=== PATIENT | female | born 1980 | race Caucasian/White ===

== ENCOUNTER 2018-03-16 14:07 | Emergency (ER) | payer BC ==
--- OUTSIDE RECORDS SUMMARY | 2018-03-16 14:10 | XMS REPORT | Continuity of Care Document ---
:1980 Author Organization Interface Problems Problem Status Onset Classification Date Comments Source Date Reported Morbid Active Problem 10/08/2017 [facility] Medications Medication Details Route Status Patient Ordering Order Source Instructions Provider Date Allergies, Adverse Reactions, Alerts Substance Category Reaction Severity Reaction Status Date Comments Source type Reported Immunizations Immunization Date Given Site Status Last Updated Comments Source Results Order Results Value Reference Date Interpretation Comments Source Name Range Vital Signs Vital Sign Value Date Comments Source BMI Calculated 43.12 07/02/2017 [facility] Height 165.1 cm 07/02/2017 [facility] Weight 117.545 07/02/2017 [facility] Heart Rate 71 07/02/2017 [facility] Systolic (mm Hg) 131 07/02/2017 [facility] Diastolic (mm Hg) 78 07/02/2017 [facility] Temperature Oral (F) 98.6 F 07/02/2017 [facility] Encounters Location Location Encounter Encounter Reason Attending ADM DC Status Source Details Type Number For Provider Date Date Visit Outpatient [id number] ISAAC 12/11 [facility] [id number] 07/02 [facility] Out[facility] [id number] Isaac 07/02 07/03 [facility] Procedures Procedure Code Date Perfomer Comments Source section [id number] [facility] Gallbladder [id number] Medical operation Group
--- OUTSIDE RECORDS SUMMARY | 2018-03-16 14:10 | XMS REPORT | Summary of Care ---
:1980 Author Organization [facility] Address [address] [place] [address]- Encounter HQ Jeanna_cristian(FIN) [id number] Date(s): 07/02/17 - 07/02/17 [facility] [address] [place] [phone] Discharge Disposition: Home or Self Care Attending Physician: Isaac Price MD Vital Signs Most recent to oldest [Reference Range]: 1 Height 165.1 cm (07/02/17 10:11 AM) Temperature Oral [96.4-99.1 DegF] 98.6 DegF (07/02/17 10:11 AM) Blood Pressure [90-140/60-90 mmHg] 131/78 mmHg (07/02/17 10:11 AM) Peripheral Pulse Rate [60-100 bpm] 71 bpm (07/02/17 10:11 AM) Weight 117.545 kg (07/02/17 10:11 AM) Body Mass Index 43.12 m2 (07/02/17 10:11 AM) Problem List Condition Effective Dates Status Health Status Informant Morbid obesity(Confirmed) Active Allergies, Adverse Reactions, Alerts Substance Reaction Severity Status NKDA Active Medications No Known Medications Results No data available for this section Immunizations No data available for this section Procedures Procedure Date Related Diagnosis Body Site Status section Completed Gallbladder operation Completed Social History Social History Type Response Smoking Status Former smoker; Type: Cigarettes; Exposure to Tobacco Smoke None ; Cigarette Smoking Last 365 Days Yes; Reg Smoking Cessation Counseling Yes entered on: 07/02/17 Assessment and Plan No data available for this section
--- NOTE | 2018-03-16 15:44 | EKG ---
Test Date: 2018-03-16 Test Time: 14:40:57 Evaporator Supervisor: TIMMY MEASUREMENT RESULTS: Intervals: Rate: 60 AK: 144 QRSD: 84 QT: 440 QTc: 440 [place]: P: 46 AK: 144 QRS: 36 T: 19 INTERPRETIVE STATEMENTS: Normal sinus rhythm Cannot rule out Anterior infarct, age undetermined Abnormal ECG Compared to ECG 01/01/1999 03:01:00 minimal change in anterior lead R waves Sinus tachycardia no longer present Electronically Signed On 03-16-18 15:44:06 CDT by Daniel Bridges
[2018-03-16 17:09] LABS: Absolute Monocytes 0.8 K/uL (0.1-1.3); Absolute Neutrophil 8.8 K/uL (1.8-8.0); Basophils % 0.6 % (0-1.3); Eosinophils % 2.2 % (0-4.4); Hematocrit 38.3 % (36.0-45.0); Lymphocytes % 23.2 % (15.3-44.8); MCH 27.2 pg (27.0-35.0); MCV 82.8 fL (80-100); MPV 8.4 fL (7.6-11.3); Monocytes % 6.1 % (3.3-12.3); RBC Red Blood Cell Count 4.63 M/uL (3.86-4.86)
[2018-03-16 17:23] LABS: BUN Blood Urea Nitrogen 11 mg/dL (7-18); Bicarbonate 25 mmol/L (21-32); Glucose Level 103 mg/dL (74-106); NT PRO-BNP 178 pg/mL (<125); Potassium 3.7 mmol/L (3.5-5.1); Sodium Level 139 mmol/L (136-145); Troponin (Emerg Dept Use Only) < 0.02 ng/mL (0.0-0.045)
[2018-03-16 17:38] LABS: Protime INR 1.02
--- NOTE | 2018-03-16 18:04 | RAD REPORT ---
EXAM DESCRIPTION: RAD - Chest Pa And Lat (2 Views) - 03/16/2018 4:04 pm CLINICAL HISTORY: Chest pain, shortness of breath COMPARISON: None. TECHNIQUE: PA and lateral views of the chest were obtained. FINDINGS: The lungs are underinflated. No infiltrate confirmed. Pericardial fat pad on the left obs cures the left hemidiaphragm. Failure and volume overload are not suspected. Heart size is normal and central vasculature is within normal limits. No pleural effusion or pneumothorax seen. No acute fran ny finding noted. No aortic abnormality. IMPRESSION: No acute cardiopulmonary process.
--- NOTE | 2018-03-16 20:14 | ER ---
Nurse's Notes [facility] Name: Rivka Bowman Age: 37 yrs Sex: Female : 1980 Arrival Date: 03/16/2018 Time: 14:10 Bed 19 Private MD: Diagnosis: Chest pain, unspecified Presentation: 03/16 14:18 Presenting complaint: Patient states: shortness of breath that began "several days ss ago". Pt states, "it started off as anxiety, but it's getting to the point now where it just feels like somebody is sitting on my chest.". Transition of care: patient was not received from another setting of care. Onset of symptoms was March 12, 2018. Risk Assessment: Do you want to hurt yourself or someone else? Patient reports no desire to harm self or others. Initial Sepsis Screen: Does the patient meet any 2 criteria? No. Patient's initial sepsis screen is negative. Does the patient have a suspected source of infection? No. Patient's initial sepsis screen is negative. Care prior to arrival: None. 14:18 Method Of Arrival: Ambulatory ss 14:18 Acuity: WILLIE 3 ss Historical: - Allergies: 14:19 Levaquin; ss - Home Meds: 18:41 None [Active]; ch - PMHx: 18:41 None; ch - PSHx: 14:19 Cholecystectomy; ; ss - Immunization history:: Adult Immunizations up to date. - Social history:: Smoking status: Patient uses tobacco products, denies chronic smoking, but will smoke occasionally. - Ebola Screening: : Patient denies exposure to infectious person Patient denies travel to an Ebola-affected area in the 21 days before illness onset. Screenin:41 Abuse screen: Denies threats or abuse. Denies injuries from another. Nutritional ch screening: No deficits noted. Tuberculosis screening: No symptoms or risk factors identified. Fall Risk None identified. Assessment: 16:41 General: Appears in no apparent distress. comfortable, Behavior is calm, cooperative, ch appropriate for age, pt is talking on phone when I try to assess her. will try again when pt is finished with her conversation. Pain: Denies pain. Cardiovascular: Heart tones S1 S2 present Capillary refill < 3 seconds in bilateral fingers toes Clubbing of nail beds is absent Patient's skin is warm and dry. Rhythm is regular. Respiratory: Reports shortness of breath Airway is patent Respiratory effort is even, unlabored, Breath sounds are clear bilaterally. Breath sounds are coarse in left posterior lower lobe. GI: No signs and/or symptoms were reported involving the gastrointestinal system. : No signs and/or symptoms were reported regarding the genitourinary system. Derm: Skin is pink, warm \\T\\ dry. 17:31 Reassessment: Patient appears in no apparent distress at this time. No changes from previously documented assessment. Patient and/or family updated on plan of care and expected duration. Pain level reassessed. Patient is alert, oriented x 3, equal unlabored respirations, skin warm/dry/pink. PT IS STILL ON PHONE, REQUESTS I GIVE HER A FEW MORE MIN. 18:24 Reassessment: Patient appears in no apparent distress at this time. Patient and/or family updated on plan of care and expected duration. Pain level reassessed. Patient is alert, oriented x 3, equal unlabored respirations, skin warm/dry/pink. Patient states feeling better. Patient states symptoms have improved. 18:41 Reassessment: Patient appears in no apparent distress at this time. No changes from previously documented assessment. Patient and/or family updated on plan of care and expected duration. Pain level reassessed. Patient is alert, oriented x 3, equal unlabored respirations, skin warm/dry/pink. 19:30 Reassessment: Patient appears in no apparent distress at this time. Patient and/or jb4 family updated on plan of care and expected duration. Pain level reassessed. Patient is alert, oriented x 3, equal unlabored respirations, skin warm/dry/pink. Patient denies pain at this time. Patient states feeling better. Patient states symptoms have improved. Cardiovascular: Patient's skin is warm and dry. Respiratory: Airway is patent Respiratory effort is even, unlabored, Respiratory pattern is regular, symmetrical. 20:20 Reassessment: Patient appears in no apparent distress at this time. Patient and/or jb4 family updated on plan of care and expected duration. Pain level reassessed. Patient is alert, oriented x 3, equal unlabored respirations, skin warm/dry/pink. Patient denies pain at this time. Patient states feeling better. Vital Signs: 14:19 BP 108 / 75; Pulse 65; Resp 16; Temp 97.0(TE); Pulse Ox 100% on R/A; Weight 120.2 kg; ss Height 5 ft. 5 in. (165.10 cm); Pain 5/10; 16:41 BP 115 / 69; Pulse 74; Resp 18; Temp 97.9; Pulse Ox 100% on R/A; Pain 0/10; ch 17:31 BP 117 / 62; Pulse 80; Resp 15; Pulse Ox 100% on R/A; ch 18:24 BP 110 / 58; Pulse 70; Resp 15; Temp 97.9; Pulse Ox 100% on R/A; Pain 0/10; ch 20:00 BP 128 / 90; Pulse 63; Resp 18; Pulse Ox 100% ; jb4 14:19 Body Mass Index 44.10 (120.20 kg, 165.10 cm) ss ED Course: 14:10 Patient arrived in ED. as 14:19 Triage completed. ss 14:19 Arm band placed on right wrist. ss 15:01 EKG done, by body art technician. reviewed by Marco Leon MD. at1 15:56 Chest Pa And Lat (2 Views) XRAY In Process Unspecified. EDMS 16:27 Randi Torres, RN is Primary Nurse. ch 16:33 Neville Mercado MD is Attending Physician. gs 16:41 Patient has correct armband on for positive identification. Placed in gown. Bed in low ch position. Call light in reach. Side rails up X 1. Adult w/ patient. Pulse ox on. NIBP on. Warm blanket given. 16:41 No provider procedures requiring assistance completed. ch 16:54 Initial lab(s) drawn, by me, sent to lab. Inserted saline lock: 20 gauge in left dh3 antecubital area, using aseptic technique. Blood collected. 18:24 No apparent distress. Resting quietly. ch 18:41 Repeat lab(s) drawn. by me, sent to lab. ch 18:56 Report given to Hugo. ch 19:17 Primary Nurse role handed off by Randi Torres, ROSANNE jb4 19:17 Kerwin Nieves, RN is Primary Nurse. jb4 20:14 Bahman Donahue MD is Referral Physician. gs 20:20 IV discontinued, intact, bleeding controlled. jb4 Administered Medications: No medications were administered Outcome: 20:14 Discharge ordered by . gs 20:20 Discharged to home ambulatory. jb4 20:20 Condition: stable 20:20 Discharge instructions given to patient, Instructed on discharge instructions, follow up and referral plans. Demonstrated understanding of instructions, follow-up care. 20:22 Patient left the ED. jb4 Signatures: Dispatcher [employer] EDMS Randi Torres, Kaur Gauthier RN, ch, Shelby, RN RN Aubrie Locke, meter reader inspector EKG Tat1 Kerwin Nieves RN RN jbXena Blandon [facility] Neville Mercado MD MD gs Corrections: (The following items were deleted from the chart) 20:12 19:30 Pulse 63bpm; Resp 18bpm; Pulse Ox 100%; jb4 jb4 20:21 20:21 Respiratory: jb4 jb4
--- NOTE | 2018-03-16 20:15 | EDPHYS ---
Physician Documentation [facility] Name: Rivka Bowman Age: 37 yrs Sex: Female : 1980 Arrival Date: 03/16/2018 Time: 14:10 Bed 19 Private MD: ED Physician Neville Mercado HPI: 03/16 20:09 This 37 yrs old Female presents to ER via Ambulatory with complaints of gs Shortness Of Breath, Chest Pressure. 20:09 The patient or guardian reports chest pain that is located primarily in the anterior gs chest wall. The pain does not radiate. Associated signs and symptoms: Pertinent positives: shortness of breath. The chest pain is described as a heaviness. Duration: The patient or guardian reports multiple episodes, that are intermittent, that wax and wane, with no pattern. Modifying factors: The symptoms are alleviated by nothing. the symptoms are aggravated by nothing. Severity of pain: At its worst the pain was moderate in the emergency department the pain has improved markedly. The patient has experienced similar episodes in the past, a few times. Historical: - Allergies: 14:19 Levaquin; ss - Home Meds: 18:41 None [Active]; ch - PMHx: 18:41 None; ch - PSHx: 14:19 Cholecystectomy; ; ss - Immunization history:: Adult Immunizations up to date. - Social history:: Smoking status: Patient uses tobacco products, denies chronic smoking, but will smoke occasionally. - Ebola Screening: : Patient denies exposure to infectious person Patient denies travel to an Ebola-affected area in the 21 days before illness onset. ROS: 20:09 All other systems are negative. gs Exam: 20:09 Head/Face: Normocephalic, atraumatic. Eyes: Pupils equal round and reactive to light, gs extra-ocular motions intact. Lids and lashes normal. Conjunctiva and sclera are non-icteric and not injected. Cornea within normal limits. Periorbital areas with no swelling, redness, or edema. ENT: Nares patent. No nasal discharge, no septal abnormalities noted. Tympanic membranes are normal and external auditory canals are clear. Oropharynx with no redness, swelling, or masses, exudates, or evidence of obstruction, uvula midline. Mucous membranes moist. Neck: Trachea midline, no thyromegaly or masses palpated, and no cervical lymphadenopathy. Supple, full range of motion without nuchal rigidity, or vertebral point tenderness. No Meningismus. Chest/axilla: Normal chest wall appearance and motion. Nontender with no deformity. No lesions are appreciated. Cardiovascular: Regular rate and rhythm with a normal S1 and S2. No gallops, murmurs, or rubs. Normal PMI, no JVD. No pulse deficits. Respiratory: Lungs have equal breath sounds bilaterally, clear to auscultation and percussion. No rales, rhonchi or wheezes noted. No increased work of breathing, no retractions or nasal flaring. Abdomen/GI: Soft, non-tender, with normal bowel sounds. No distension or tympany. No guarding or rebound. No evidence of tenderness throughout. Back: No spinal tenderness. No costovertebral tenderness. Full range of motion. Skin: Warm, dry with normal turgor. Normal color with no rashes, no lesions, and no evidence of cellulitis. MS/ Extremity: Pulses equal, no cyanosis. Neurovascular intact. Full, normal range of motion. Neuro: Awake and alert, GCS 15, oriented to person, place, time, and situation. Cranial nerves II-XII grossly intact. Motor strength 5/5 in all extremities. Sensory grossly intact. Cerebellar exam normal. Normal gait. 20:09 Constitutional: The patient appears alert, awake. 20:09 ECG was reviewed by the Attending Physician. Vital Signs: 14:19 BP 108 / 75; Pulse 65; Resp 16; Temp 97.0(TE); Pulse Ox 100% on R/A; Weight 120.2 kg; Height 5 ft. 5 in. (165.10 cm); Pain 5/10; 16:41 BP 115 / 69; Pulse 74; Resp 18; Temp 97.9; Pulse Ox 100% on R/A; Pain 0/10; ch 17:31 BP 117 / 62; Pulse 80; Resp 15; Pulse Ox 100% on R/A; ch 18:24 BP 110 / 58; Pulse 70; Resp 15; Temp 97.9; Pulse Ox 100% on R/A; Pain 0/10; ch 20:00 BP 128 / 90; Pulse 63; Resp 18; Pulse Ox 100% ; jb4 14:19 Body Mass Index 44.10 (120.20 kg, 165.10 cm) MDM: 17:28 Patient medically screened. gs 20:09 Differential diagnosis: abnormal EKG, coronary artery disease chest wall pain. HEART gs Score: History: Slightly Suspicious (0), ECG: Non specific repolarization disturbance / LBTB / PM (1), Age: < or = 45 years (0), Risk Factors: No Risk Factors Known (0), Troponin: < or = 1 x Normal Limit (0). Data reviewed: vital signs, nurses notes. Response to treatment: the patient's symptoms have resolved after treatment, the patient's pain is gone. 03/16 16:37 Order name: Basic Metabolic Panel; Complete Time: 17:57 gs 03/16 16:37 Order name: CBC with Diff; Complete Time: 17:57 gs 03/16 16:37 Order name: NT PRO-BNP; Complete Time: 17:57 gs 03/16 16:37 Order name: PT-INR; Complete Time: 17:57 gs 03/16 16:37 Order name: Troponin (emerg Dept Use Only); Complete Time: 17:57 gs 03/16 18:22 Order name: Troponin (emerg Dept Use Only); Complete Time: 19:42 gs 03/16 14:21 Order name: EKG; Complete Time: 14:21 ss 03/16 14:21 Order name: EKG - Nurse/Tech; Complete Time: 16:49 ss 03/16 15:12 Order name: Chest Pa And Lat (2 Views) XRAY; Complete Time: 18:09 snw 03/16 16:37 Order name: Cardiac monitoring; Complete Time: 17:30 gs 03/16 16:37 Order name: IV Saline Lock; Complete Time: 16:58 gs 03/16 16:37 Order name: Labs collected and sent; Complete Time: 16:58 gs 03/16 16:37 Order name: O2 Per Protocol; Complete Time: 16:58 gs 03/16 16:37 Order name: O2 Sat Monitoring; Complete Time: 16:58 gs EC:09 Rhythm is regular. CO interval is normal. QRS interval is normal. QT interval is gs normal. T waves are Flattened in leads III, V3. No ST changes noted. Clinical impression: NSR w/ Non-specific ST/T Changes. Interpreted by me. Administered Medications: No medications were administered Disposition: 03/16/18 20:14 Discharged to Home. Impression: Chest pain, unspecified. - Condition is Stable. - Discharge Instructions: Nonspecific Chest Pain. - Medication Reconciliation Form, Thank You Letter, Antibiotic Education, Prescription Opioid Use form. - Follow up: Private Physician; When: 2 - 3 days; Reason: Re-evaluation by your physician. Follow up: Bahman Donahue MD; When: 2 - 3 days; Reason: Re-evaluation by your physician. Signatures: Dispatcher [employer] EDWY Randi Torres, ROSANNE RN Muna Richards RN RN Kerwin Nivees RN RN jb4 Neville Mercado MD MD Corrections: (The following items were deleted from the chart) 20:14 20:14 03/16/2018 20:14 Discharged to Home. Impression: Chest pain, unspecified. gs Condition is Stable. Forms are Medication Reconciliation Form, Thank You Letter, Antibiotic Education, Prescription Opioid Use. Follow up: Private Physician; When: 2 - 3 days; Reason: Re-evaluation by your physician. 20:22 20:14 03/16/2018 20:14 Discharged to Home. Impression: Chest pain, unspecified. jb4 Condition is Stable. Discharge Instructions: Nonspecific Chest Pain. Forms are Medication Reconciliation Form, Thank You Letter, Antibiotic Education, Prescription Opioid Use. Follow up: Private Physician; When: 2 - 3 days; Reason: Re-evaluation by your physician. Follow up: Bahman Donahue; When: 2 - 3 days; Reason: Re-evaluation by your physician.
[2018-03-16 20:37] VITALS: O2SAT 100
[2018-03-16 20:38] VITALS: TEMP 97.9
[2018-03-16 20:42] VITALS: BP 128/90
== END 2018-03-16 20:22 | disposition home or self-care (01) ==
LOC: ER 14:07
DX: R07.9 Chest pain, unspecified (principal)
CPT/HCPCS: 36415; 71046; 80048; 83880; 84484; 85025; 85610; 93005; 99284